=== PATIENT | female | born 1950 | race Caucasian/White ===

== ENCOUNTER → 2024-07-19 16:58 | Outpatient (REF) | payer MEDICARE, OTHER, SELFPAY ==
[2024-07-19 17:41] LABS: INR 2.65; PT 28.3 Sec (11.4-14.6)
== END ==
LOC: RCS 16:58
PROVIDERS: ATTENDING PHYSICIAN Internal Medicine; FAMILY PHYSICIAN Family Medicine
DX: I50.32 Chronic diastolic (congestive) heart failure (principal); I48.0 Paroxysmal atrial fibrillation; I35.1 Nonrheumatic aortic (valve) insufficiency; I36.1 Nonrheumatic tricuspid (valve) insufficiency
CPT/HCPCS: 36415; 85610; 93306

== ENCOUNTER → 2024-12-08 16:56 | Outpatient (REF) | payer MEDICARE, SELFPAY ==
[2024-12-08 17:46] LABS: INR 1.75; PT 20.9 Sec (11.4-14.6)
== END ==
LOC: REG 16:56
PROVIDERS: ATTENDING PHYSICIAN Internal Medicine
DX: I48.0 Paroxysmal atrial fibrillation (principal)
CPT/HCPCS: 36415; 85610

== ENCOUNTER → 2025-07-17 12:38 | Outpatient (REF) | payer MEDICARE, SELFPAY | LOC: RCS 12:38 | PROVIDERS: ATTENDING PHYSICIAN Nurse Practitioner; FAMILY PHYSICIAN Family Medicine | DX: I48.21 Permanent atrial fibrillation (principal); I50.32 Chronic diastolic (congestive) heart failure; I35.0 Nonrheumatic aortic (valve) stenosis | CPT/HCPCS: 93225; 93226 ==

== ENCOUNTER → 2025-07-18 12:39 | Outpatient (REF) | payer MEDICARE, SELFPAY | LOC: RCS 12:39 | PROVIDERS: ATTENDING PHYSICIAN Nurse Practitioner; FAMILY PHYSICIAN Family Medicine | DX: I48.21 Permanent atrial fibrillation (principal); I50.32 Chronic diastolic (congestive) heart failure; I35.0 Nonrheumatic aortic (valve) stenosis | CPT/HCPCS: 93306 ==